=== PATIENT | female | born 1930 | race Caucasian/White ===

== ENCOUNTER 2017-01-26 17:53 | Observation (INO) | payer MEDICARE, OTHER ==
--- OUTSIDE RECORDS SUMMARY | 2017-01-26 17:55 | XMS | Clinical Summary ---
:1930 Author Organization [facility] Address [address] [place] [address] Phone Care Team Providers Name Role Phone , Primary Care Provider Unavailable Allergies Not on File Current Medications Not on file Active Problems Not on file Social History Tobacco Use Types Packs/Day Years Used Date Never Assessed Sex Assigned at Date Recorded Not on file Last Filed Vital Signs Not on file Plan of Treatment Not on file Results Not on filefrom Last 3 Months
[2017-01-26 19:40] LABS: #Eosinphils 0.1 thou/uL (0.0-0.7); #Lymphocytes 1.4 thou/uL (1.20-3.40); #Monocytes 0.4 thou/uL (0.11-0.59); #Neutrophils 4.8 thou/uL (1.40-6.50); %Basophils 0.5 % (0.0-1.0); %Eosinophils 1.7 % (0.0-10.0); %Monocytes 6.1 % (0.0-10.0); Mean Platelet Volume 7.7 fL (7.4-10.4); Red Blood Cell (RBC) Count 4.77 mill/uL (4.20-5.40); White Blood Cell (WBC) Count 6.7 thou/uL (4.8-10.8)
[2017-01-26 19:46] LABS: PTT 32.2 SEC (22.9-36.1); Prothrombin Time 14.7 SEC (12.0-14.7)
[2017-01-26 20:07] LABS: ALT (SGPT) 12 U/L (8-55); AST (SGOT) 17 U/L (5-34); Alkaline Phosphatase 60 U/L (40-150); Anion Gap 12 mmol/L (10-20); BUN (Urea Nitrogen) 26 mg/dL (9.8-20.1); Bilirubin, Total 0.8 mg/dL (0.2-1.2); CK (CPK) 49 U/L (29-168); Calc. Creatinine Clearance 0 mL/min (70-130); Calcium 9.6 mg/dL (7.8-10.44); Carbon Dioxide 28 mmol/L (23-31); Chloride 100 mmol/L (98-107); Estimated GFR-MDRD 56; Globulin 3.2 g/dL (2.4-3.5); Lipase 24 U/L (8-78); Protein, Total 7.1 g/dL (6.0-8.3)
[2017-01-26 20:11] LABS: Troponin I Less than 0.010 ng/mL (< 0.028)
--- NOTE | 2017-01-26 20:43 | CT ---
BRAIN CT WITHOUT IV CONTRAST: 01/26/17 HISTORY: 86-year-old female with altered mental status as well as dizziness and headache which began three da ys ago. COMPARISON: 11/24/13. FINDINGS: Atrophy and chronic white matter ischemic change. No mass or acute hemorrhage. Stable appearance. IMPRESSION: Stable atrophy and chronic white matter ischemic change. No mass or bleed or other acute process. POS: [facility]
--- NOTE | 2017-01-26 22:10 | RAD ---
UPRIGHT PORTABLE CHEST ONE VIEW 01/26/17 HISTORY: 86-year-old female with altered mental status and dizzy spells. COMPARISON: 05/01/16 FINDINGS: Severe S-shaped scoliosis. Heart size is within normal limits. Left ICD. Monitor leads overlie the c hest. IMPRESSION: No significant acute intrathoracic disease. Severe S-shaped scoliosis. Left ICD. POS: [facility]
[2017-01-26 22:17] VITALS: BMI 16.2
[2017-01-26] MEDS ORDERED: Ondansetron HCl/PF 4 MG/2 ML Vial IVP PRN (22:24)
[2017-01-26] MEDS ORDERED: Ondansetron ODT 4 MG TAB SL PRN (22:24)
[2017-01-26] MEDS ORDERED: Acetaminophen 325 MG TAB PO PRN ×2 (22:24→23:13)
[2017-01-26] MEDS ORDERED: Senokot 8.6 MG TAB PO PRN (23:13)
[2017-01-26] MEDS ORDERED: Sodium Chloride 0.9% 1,000 ML IV SCH (23:15)
[2017-01-26 23:32] LABS: Troponin I 0.022 ng/mL (< 0.028)
[2017-01-26 23:47] LABS: Bilirubin Negative (Negative); Blood, Urine Negative (Negative); Glucose, Urine (Dipstick) Negative (Negative); Ketone, Urine Negative (Negative); Nitrite Negative (Negative); Protein, Urine (Dipstick) Negative (Neg-Trace); Urobilinogen 0.2 mg/dL (0.2-1.0)
[2017-01-26 23:49] LABS: Bacteria/HPF None Seen HPF (None Seen); Hyaline Casts/LPF 0-3 HYALINE CAST LPF (0-3 Hyaline); RBC/HPF 0-3 HPF (0-3); Squamous Epithelial 0-3 HPF (0-3); WBC/HPF 0-3 HPF (0-3)
--- NOTE | 2017-01-27 02:00 | HP ---
REASON FOR ADMISSION: Dizziness, mild confusion. HISTORY OF PRESENTING ILLNESS: The patient gives history of feeling dizzy day before while she was trying to get up from her commode. This has continued from last 2 days. Yesterday morning, she was apparently a little confused per the son and daughter here at the bedside. Has no complaints of any specific weakness in any of the extremities. No complaints of chest pain, palpitations, PND, or orthopnea. The patient was taken off her digoxin and Zetia 2 weeks ago. No new medications have been added. She continues to take Lasix. No complaints of fever, cough, or expectoration. No complaints of flu-like illness. No complaints of urinary frequency or urgency. PAST MEDICAL AND SURGICAL HISTORY: History of CHF with systolic dysfunction and ejection fraction of 25%, AICD, paroxysmal atrial fibrillation, history of breast cancer, mastectomy, appendectomy, hysterectomy, tonsillectomy, thyroidectomy, hypothyroidism. CURRENT MEDICATIONS: Patient is on Coreg 25 mg twice daily, lisinopril 10 mg daily, Synthroid 75 mcg daily, sotalol 80 mg p.o. 2 times daily, Eliquis 2.5 mg p.o. twice daily, vitamin C 500 mg p.o. daily, calcium 1250 mg p.o. daily, vitamin D 1 capsule daily, Lasix 20 mg daily. ALLERGIES: Multiple agents including CODEINE, EPINEPHRINE, IODINE, LEVOFLOXACIN , LIDOCAINE, PENICILLIN, PROCAINE PENICILLIN, and SULFA. PERSONAL HISTORY: Does not abuse alcohol or drugs. No history of smoking. FAMILY HISTORY: Mother has had [place] at the age of 78. Sister has had history of coronary artery disease. Patient normally ambulates by herself. REVIEW OF SYSTEMS: The following complete review of systems was negative, unless otherwise mentioned in the HPI or below: Constitutional: Weight loss or gain, ability to conduct usual activities. Skin: Rash, itching. Eyes: Double vision, pain. ENT/Mouth: Nose bleeding, neck stiffness, pain, tenderness. Cardiovascular: Palpitations, dyspnea on exertion, orthopnea. Respiratory: Shortness of breath, wheezing, cough, hemoptysis, fever or night sweats. Gastrointestinal: Poor appetite, abdominal pain, heartburn, nausea, vomiting, constipation, or diarrhea. Genitourinary: Urgency, frequency, dysuria, nocturia. Musculoskeletal: Pain, swelling. Neurologic/Psychiatric: Anxiety, depression. Allergy/Immunologic: Skin rash, bleeding tendency. PHYSICAL EXAMINATION: GENERAL: The patient is an 86-year-old female, who is currently not in any acute distress. VITAL SIGNS: Blood pressure 164/64 on arrival, pulse 66 per minute, respiratory rate 18 per minute, temperature 98.6 degrees Fahrenheit, saturating 98% on room air. NECK: Supple, no elevated JVD. HEENT: Extraocular muscles intact. Pupils reacting to light. Oral cavity mucous membranes are moist. No exudates or congestion. CARDIOVASCULAR SYSTEM: S1, S2 heard. Regular rhythm. RESPIRATORY SYSTEM: Air entry 1+ bilaterally. No rales or rhonchi. ABDOMEN: Soft, bowel sounds heard. No tenderness, rigidity, or guarding. EXTREMITIES: No peripheral edema or calf tenderness. VASCULAR SYSTEM: Peripheral pulses 1+ bilateral. No ischemic ulcerations or gangrene. CENTRAL NERVOUS SYSTEM: No gross focal deficits seen. Patient is alert, awake , oriented x3. PSYCHIATRIC SYSTEM: The patient's mood is euthymic. No hallucinations or delusions. LABORATORY AND X-RAY FINDINGS: EKG done shows paced rhythm at 62 beats per minute. White count of 6.7, H and H 15 and 47, platelet count 212 with 70% neutrophils, MCV is 98. PT, INR, PTT within normal limits. Electrolytes are stable. BUN 26, creatinine 0.9. Liver enzymes within normal limits. First set of cardiac enzymes are negative. Lipase is 24. UA shows small leukocyte esterase, but there is only 0-3 wbc's and no bacteria seen. CT brain done shows no acute intracranial abnormalities. There is stable atrophy of the brain. Chest x-ray done shows no acute intrathoracic disease. CLINICAL IMPRESSION AND PLAN: The patient will be under observation on the stroke unit for dizziness most likely orthostasis with her being on Lasix and multiple antihypertensive medications. We will gently hydrate her with 70 mL per hour normal saline for a total of 1 liter. She has known history of congestive heart failure and would not want her to be overloaded. Her sotalol dose need to be confirmed from her pharmacy. Orthostatic blood pressures will be obtained. Most likely, the patient can be discharged after PT evaluates the patient in the morning. Please note, I have seen and examined the patient on . ENRIKE
[2017-01-27 02:23] LABS: #Eosinphils 0.1 thou/uL (0.0-0.7); #Lymphocytes 2.2 thou/uL (1.20-3.40); #Monocytes 0.5 thou/uL (0.11-0.59); #Neutrophils 3.8 thou/uL (1.40-6.50); %Basophils 0.6 % (0.0-1.0); %Eosinophils 1.5 % (0.0-10.0); %Lymphocytes 32.9 % (21.0-51.0); %Monocytes 8.1 % (0.0-10.0); Mean Platelet Volume 7.6 fL (7.4-10.4); Red Blood Cell (RBC) Count 4.26 mill/uL (4.20-5.40); White Blood Cell (WBC) Count 6.7 thou/uL (4.8-10.8)
[2017-01-27 02:50] LABS: Troponin I 0.021 ng/mL (< 0.028)
[2017-01-27 03:05] LABS: Anion Gap 10 mmol/L (10-20); BUN (Urea Nitrogen) 23 mg/dL (9.8-20.1); Calc. Creatinine Clearance 34 mL/min (70-130); Calcium 9.4 mg/dL (7.8-10.44); Carbon Dioxide 28 mmol/L (23-31); Chloride 103 mmol/L (98-107); Cholesterol 157 mg/dl (< 200 Desired); Estimated GFR-MDRD 66; LDL Cholesterol, Calculated 95 mg/dL
[2017-01-27] MEDS: Levothyroxine Sodium 75 MCG TAB PO SCH (05:36)
[2017-01-27] MEDS ORDERED: Aspirin 325 MG TAB PO SCH (08:00)
[2017-01-27] MEDS: Aspirin 81 mg Enteric Coated Tablet PO SCH (08:27)
[2017-01-27] MEDS: Apixaban 5 MG TAB PO SCH ×2 (08:28→20:08)
[2017-01-27] MEDS: Lisinopril 10 MG TAB PO SCH (08:28)
[2017-01-27] MEDS: Sotalol HCl 80 MG TAB PO SCH (08:28)
[2017-01-27] MEDS: Carvedilol 25 MG TAB PO SCH ×2 (08:28→17:10)
[2017-01-27] MEDS: Magnesium Chloride 64 MG TAB PO SCH (08:30)
--- NOTE | 2017-01-27 13:57 | CON ---
DATE OF CONSULTATION: 01/27/2017 REASON FOR CONSULTATION: 1. Dizziness, lightheadedness, nonsustained ventricular tachycardia. 2. Status post biventricular pacemaker defibrillator. 3. Confusion. HISTORY OF PRESENT ILLNESS: Ms. Donohue is a delightful 86-year-old woman. She has a long history o f idiopathic cardiomyopathy with previous biventricular pacemaker defibrillator. She came to the [facility] last night. She cannot give me a lot of details as her memory is becoming progressively more impaired, but she thinks she was having dizzy episodes and felt like she may even faint, but did n ot faint at home. She was brought to the hospital. There was some mild confusion. She seems to be more oriented, less confused today and she apologizes but said she really cannot remember a lot of the details other than being lightheaded. No chest pain or pressure. PAST MEDICAL HISTORY: 1. She has a long history of idiopathic dilated cardiomyopathy with previous pacemaker defibrillato r biventricular device for left bundle branch block. 2. History of atrial fibrillation. She was on sotalol for that. MEDICATIONS PRIOR TO ADMISSION: 1. Carvedilol 25 mg twice daily. 2. Furosemide. 3. Eliquis. 4. Lisinopril. 5. Synthroid. 6. Calcium. 7. Sotalol 80 mg twice a day. ALLERGIES: CEFAZOLIN, CODEINE, IODINE, LEVOFLOXACIN and LIDOCAINE. SOCIAL HISTORY: She tells me she lives alone. REVIEW OF SYSTEMS: Somewhat incomplete due to her memory loss, but the following is obtained. GENERAL: She is thin and has gradually been losing some weight. VISION: No changes. HEARING: No changes. PULMONARY: No cough or wheezing. CARDIAC: No chest pain or shortness of breath. PULMONARY: No difficulty breathing. GASTROINTESTINAL: No nausea, vomiting, diarrhea. SKIN: No rashes. NEUROLOGIC: No unilateral weakness or numbness. PSYCHIATRIC: No unusual depression or anxiety. HEMATOLOGIC: No unusual bruising. GENITOURINARY: No burning with urination. PHYSICAL EXAMINATION: GENERAL: This is a very pleasant, frail appearing elderly woman. She is 5 foot 5 inches tall, 97 p ounds. VITAL SIGNS: Blood pressure earlier 176/74, subsequently 142/68, pulse 70. EYES: Sclerae nonicteric. MOUTH: Mucous membranes moist. NECK: Supple, no lymphadenopathy. LUNGS: Clear, no wheezing, rales or rhonchi. CARDIOVASCULAR: Normal S1, normal S2. There is a grade 3/6 loud holosystolic murmur at the apex. No diastolic murmur, no S3. ABDOMEN: Soft, nontender. EXTREMITIES: No clubbing, cyanosis or edema. LABORATORY AND X-RAY FINDINGS: EKG reveals atrial pacing and biventricular paced rhythm. ASSESSMENT: 1. Dizziness and lightheadedness, probably orthostatic hypotension. 2. Cardiomyopathy. 3. Sounds like mitral regurgitation. 4. Biventricular pacemaker defibrillator implantation. 5. Nonsustained ventricular tachycardia. PLAN: 1. Check orthostatic hypotension. 2. Interrogate device. 3. Go ahead and Hep-Lock the IV. 4. Repeat echocardiogram.
--- NOTE | 2017-01-27 18:02 | PDOC.PN ---
- Subjective Encounter Start Date: 01/27/17 Encounter Start Time: 18:00 Subjective: f/u for dizziness and NSVT. Currently asymptomatic and feels ok. -: Pacemaker interrogated today and 2D echo taken but pending. - Objective Resuscitation Status: Resuscitation Status FULL:Full Resuscitation MAR Reviewed: Yes Vital Signs & Weight: Vital Signs (12 hours) Temp Pulse Pulse Pulse Pulse Resp BP 01/27/17 17:00 98.1 F 65 14 01/27/17 14:56 69 01/27/17 14:55 67 01/27/17 14:53 68 01/27/17 14:50 68 67 69 116/54 L 01/27/17 08:00 98.3 F 71 16 01/27/17 07:32 98.3 F 71 16 BP BP BP BP BP Pulse Ox 01/27/17 17:00 127/61 95 01/27/17 14:56 137/65 01/27/17 14:55 137/64 01/27/17 14:53 116/54 L 01/27/17 14:50 137/64 137/65 01/27/17 08:00 01/27/17 07:32 142/68 H 95 Weight Admit Weight 97 lb 4.816 oz Weight 97 lb 4.816 oz I&O: 01/26/17 01/27/17 01/28/17 06:59 06:59 06:59 Intake Total 433 Balance 433 Result Diagrams: 01/27/17 02:12 01/27/17 02:12 Radiology Reviewed by me: Yes (2D echo pending) EKG Reviewed by me: Yes (Tele - Paced, NSVT/WCT) Phys Exam - Physical Examination Constitutional: NAD HEENT: PERRLA, oral pharynx no lesions Neck: no JVD, supple Respiratory: no wheezing, clear to auscultation bilateral Cardiovascular: RRR Gastrointestinal: soft, non-tender, no distention, positive bowel sounds Musculoskeletal: no edema, pulses present Neurological: normal sensation, moves all 4 limbs Psychiatric: A&O x 3 Skin: normal turgor, cap refill <2 seconds Dx/Plan (1) Arrhythmia Code(s): I49.9 - CARDIAC ARRHYTHMIA, UNSPECIFIED Status: Acute Qualifiers: Arrhythmia type: ventricular tachycardia Qualified Code(s): I47.2 - Ventricular tachycardia Comment: Pacemaker interrogation, 2D echo pending, Sotalol 80mg daily (2) Dizziness Code(s): R42 - DIZZINESS AND GIDDINESS Status: Acute Comment: ? relationship to NSVT, resolved currently (3) HTN (hypertension) Code(s): I10 - ESSENTIAL (PRIMARY) HYPERTENSION Status: Chronic Qualifiers: Hypertension type: essential hypertension Qualified Code(s): I10 - Essential (primary) hypertension Comment: labile, resume Sotalol, monitor BP response, may need additional titration for more optimal control (4) CKD (chronic kidney disease) stage 2, GFR 60-89 ml/min Code(s): N18.2 - CHRONIC KIDNEY DISEASE, STAGE 2 (MILD) Status: Chronic Comment: Stable currently - Plan plan discussed w/ family, out of bed/ambulate, DVT proph w/SCDs Stable overall -: Continue Sotalol and Coreg -: ? Resumption of Digoxin -: Await 2D echo results -: Likely home in am * .
[2017-01-28] MEDS: Levothyroxine Sodium 75 MCG TAB PO SCH (05:26)
[2017-01-28 07:52] VITALS: TEMP 97.4
--- NOTE | 2017-01-28 08:42 | PRG ---
DATE OF SERVICE: 01/28/2017 SUBJECTIVE: Ms. Donohue is doing well today. No chest pain or pressure. She is not lightheaded tod ay. PHYSICAL EXAMINATION: VITAL SIGNS: Blood pressure was high 170/74, pulse 70. LUNGS: Clear. CARDIAC: Normal S1, S2. Orthostatic hypotension she did not have, standing actually blood pressure increased. Echocardiogram showed normal left ventricular function. She has left ventricular hypertrophy. ASSESSMENT: 1. Dizziness and lightheadedness of unknown etiology. 2. Occasional nonsustained ventricular tachycardia, rate of 110 beats per minute. It does not appe ar to likely be the source of her dizziness. 3. Atrial fibrillation, suppressed on sotalol. 4. Iodine allergy. Therefore, probably cannot use amiodarone. PLAN: 1. Okay with me to be released home. 2. The DECET rate was lowered on the device to see if she has recurrent ventricular arrhythmias. 3. The family said she had an attempt at ablation previously, had multiple sources of tachycardia. I do not have that information available to me, that was quite a long time ago. At the present gerald e, we will continue the regimen as outlined above.
[2017-01-28] MEDS: Magnesium Chloride 64 MG TAB PO SCH (08:43)
[2017-01-28] MEDS: Sotalol HCl 80 MG TAB PO SCH (08:44)
[2017-01-28] MEDS: Aspirin 81 mg Enteric Coated Tablet PO SCH (08:44)
[2017-01-28] MEDS: Apixaban 5 MG TAB PO SCH (08:44)
[2017-01-28] MEDS: Carvedilol 25 MG TAB PO SCH (08:44)
[2017-01-28] MEDS: Lisinopril 10 MG TAB PO SCH (08:44)
[2017-01-28 13:04] VITALS: BP 154/66
--- NOTE | 2017-01-28 13:18 | PDISCHARGE ---
Discharge - Disposition Disposition: HOME - Ambulatory Orders Prescriptions: Lisinopril [Zestril] 20 mg PO DAILY #30 tab - Patient Instructions Pre-Printed Education: Ventricular Arrhythmia, ED Arrhythmia, Unspecified, ED Dizziness, Unk Cause, ED Syncope, Unk Cause Care Plan Goals: FOCUS: Transition from Acute Care after Discharge GOAL: Successful transition to care in the community YOUR TASKS: (1) review all information outlined in your discharge packet (2) follow any instructions outlined in your discharge packet (3) contact your primary care provider if you have questions or need additional assistanceStable Systolic HF on admission: EF 25-30% with ICD. Please provide education on discharge for continued management of HF at home. 0 TAKE CONTROL OF HEART FAILURE 0 Together we can! o Weigh yourself daily every morning after going to the bathroom. Call your health care provider if you gain 2 pounds in a day or 5 pounds in a week. o Eat no more than 2 grams (2000mg) sodium (salt) a day. Read food labels and throw away the salt shaker! o Your personal fluid limit: Only if instructed by a provider o Take your Medications as prescribed. Do not skip doses. If you can't afford your medications, please let your doctor know. o Watch for worsening heart failure symptoms such as increased swelling or increased shortness of breath with activity or at rest. o Follow-up with your primary care provider within 1 week of discharge from the hospital. o Maintain activity as tolerated with frequent rest periods. o If you smoke - smoking puts stress on your heart. We can help you quit smoking, just ask. o Expect a follow up call in one to three days if you are being discharged to your home. Please go to heart.org/myhfguide to learn even more about managing your heart failure using the free interactive workbook. - Referrals and PCP Follow-Up Referrals and PCP Follow-Up: Clyde Forrester MD [Active] - 10 Days PROVIDER,NO PCP [Primary Care Provider] - Katie Aguilar MD [Active] - 14 Days - Activity Instructions Activity:: Activity as Tolerated Additional Activity Instructions:: rolloing walker as per PT - Nourishment Instructions Nourishment:: Heart Healthy Diet - Equipment/Supply Instructions Equipment/Supplies:: Walker
--- NOTE | 2017-01-28 14:48 | PDOC.EVN ---
Event Note - Event Note Event Note: discharge summary dictated
--- NOTE | 2017-01-28 23:13 | DIS ---
DATE OF ADMISSION: 01/27/2017 DATE OF DISCHARGE: 01/28/2017 DISCHARGE DIAGNOSES: 1. Ventricular tachycardia. 2. Resolved dizziness. 3. Hypertension, controlled. 4. Chronic kidney disease, stable. 5. Status post permanent pacemaker. 6. On chronic anticoagulation. 7. Idiopathic dilated cardiomyopathy. 8. History of breast cancer. DISCHARGE MEDICATIONS: Lisinopril 20 mg p.o. daily, sotalol 80 mg p.o. daily, aspirin 81 mg p.o. daily, Tylenol p.r.n., levothyroxine 75 mcg p.o. daily, Coreg 25 mg p.o. b.i.d., Slow-Mag 1 tab daily, Senna p.r.n. CONSULTATIONS: Cardiology. HOSPITAL COURSE: Patient was admitted to the telemetry unit from the emergency room with dizziness. Patient has a history of idiopathic dilated cardiomyopathy , atrial fibrillation, status post PPM, hypertension and breast cancer. Patient did well. Cardiac enzymes were negative. She was seen by Cardiology, and pacemaker was interrogated. This only showed nonsustained ventricular tachycardia occasionally with a maximum rate of 110, unlikely to be the source of dizziness. A 2D echocardiogram was done as per Cardiology recommendation. This showed ejection fraction of 50%-55%, concentric LVH, mildly dilated left atrium, moderate MR. Patient was seen by physical therapy and recommended to have a rolling walker, which was prescribed. Patient's blood pressure was slightly elevated, so lisinopril dose was increased to 20 mg p.o. daily. The patient did well with the above recommendations and her dizziness resolved. She was discharged to home in stable condition on 01/28/2017. She was advised to follow up with the PCP in 7 days and with Cardiology in 10 days. Anticoagulation was continued. Instructions given to the patient and family. ENRIKE
[2017-01-29] MEDS ORDERED: Lisinopril 20 MG TAB PO SCH (09:00)
== END 2017-01-28 11:45 | disposition home or self-care (01) ==
LOC: ERS 17:53 → 2SE 20:45
PROVIDERS: ADMIT Internal Medicine; ATTEND Internal Medicine
DX: I47.2 Ventricular tachycardia (principal); R42 Dizziness and giddiness; I13.0 Hypertensive heart and chronic kidney disease with heart failure and stage 1 through stage 4 chronic kidney disease, or unspecified chronic kidney disease; N18.2 Chronic kidney disease, stage 2 (mild); E89.0 Postprocedural hypothyroidism; I44.7 Left bundle-branch block, unspecified; I50.20 Unspecified systolic (congestive) heart failure; I48.0 Paroxysmal atrial fibrillation; Z79.82 Long term (current) use of aspirin; Z79.01 Long term (current) use of anticoagulants; Z79.899 Other long term (current) drug therapy; Z88.5 Allergy status to narcotic agent; Z88.0 Allergy status to penicillin; Z88.2 Allergy status to sulfonamides; Z88.7 Allergy status to serum and vaccine; Z88.8 Allergy status to other drugs, medicaments and biological substances; Z88.1 Allergy status to other antibiotic agents; Z91.041 Radiographic dye allergy status; Z95.0 Presence of cardiac pacemaker; Z90.49 Acquired absence of other specified parts of digestive tract; Z90.710 Acquired absence of both cervix and uterus; Z90.10 Acquired absence of unspecified breast and nipple; Z90.89 Acquired absence of other organs; Z85.3 Personal history of malignant neoplasm of breast
CPT/HCPCS: 70450; 71010; 80048; 80053; 80061; 81001; 82550; 82553; 83690; 84484 ×3; 85025 ×2; 85610; 85730; 93005; 93306; 96360; 96361; 97110; 97116; 97139; 99285; G0378; G8978; G8979; 36415

== ENCOUNTER 2017-05-08 11:34 | Emergency (ER) | payer MEDICARE, OTHER ==
[2017-05-08] MEDS ORDERED: traMADol HCl 50 MG TAB ONE (13:33)
--- NOTE | 2017-05-08 13:50 | RAD ---
RIGHT HIP 2 VIEWS: Date: 05/08/17 HISTORY: 86-year-old female with right hip pain for several days. FINDINGS: Mild bony demineralization. No evidence for an acute fracture or dislocation. Degenerative changes ri ght hip joint. IMPRESSION: Degenerative changes right hip joint. Bony demineralization. No acute fracture. POS: [facility]
--- NOTE | 2017-05-08 13:52 | RAD ---
AP PELVIS 1 VIEW: Date: 05/08/17 HISTORY: Right hip pain for several days. FINDINGS: Bony demineralization and bilateral hip joint arthrosis. There is lower lumbar spine spondylosis with what appears to be some levoscoliosis. There is diffuse bony demineralization. No evidence for an ac [place] pelvic fracture. IMPRESSION: No acute pelvic fracture. POS: [facility]
== END 2017-05-08 14:22 | disposition home or self-care (01) ==
LOC: ERS 11:34
DX: M25.551 Pain in right hip (principal); I48.91 Unspecified atrial fibrillation; Z79.899 Other long term (current) drug therapy
CPT/HCPCS: 72170

== ENCOUNTER 2017-05-24 14:08 | Emergency (ER) | payer MEDICARE, OTHER ==
[~2017-05-24 14:08] MED LIST: ISOVUE-370 76%-LOCM 1 ML ONE
[2017-05-24 14:44] LABS: #Eosinphils 0.1 thou/uL (0.0-0.7); #Lymphocytes 1.5 thou/uL (1.20-3.40); #Monocytes 0.5 thou/uL (0.11-0.59); %Basophils 0.6 % (0.0-1.0); %Monocytes 6.6 % (0.0-10.0); %Neutrophils 73.9 % (42.0-75.0); Hemoglobin 14.1 g/dL (12.0-16.0); Mean Corpuscular HGB CONC 33.4 g/dL (32.0-36.0); Mean Corpuscular Hemoglobin 32.7 pg (27.0-31.0); Mean Corpuscular Volume 98.1 fl (81.0-99.0); Platelet Count 228 thou/uL (130-400); RBC Distribution Width 12.2 % (11.5-14.5); Red Blood Cell (RBC) Count 4.31 mill/uL (4.20-5.40); White Blood Cell (WBC) Count 8.1 thou/uL (4.8-10.8)
--- NOTE | 2017-05-24 14:50 | RAD ---
SINGLE VIEW OF CHEST: Date: 05/24/17 COMPARISON: 01/26/17. HISTORY: Chest pain when attempting to swallow a pill earlier and the pill became stuck. FINDINGS: Single view of the chest shows an enlarged but stable cardiomediastinal silhouette. Pacemaker is unch anged in position. There is no evidence of consolidation, mass, or pleural effusion. There is severe scoliotic curvature of the spine. IMPRESSION: No evidence of acute cardiopulmonary disease. POS: [facility]
[2017-05-24 15:08] LABS: ALT (SGPT) 15 U/L (8-55); AST (SGOT) 22 U/L (5-34); Albumin 3.9 g/dL (3.4-4.8); Alkaline Phosphatase 56 U/L (40-150); Anion Gap 11 mmol/L (10-20); BUN (Urea Nitrogen) 17 mg/dL (9.8-20.1); Bilirubin, Total 0.9 mg/dL (0.2-1.2); CK (CPK) 71 U/L (29-168); Calc. Creatinine Clearance 0 mL/min (70-130); Calcium 9.7 mg/dL (7.8-10.44); Carbon Dioxide 27 mmol/L (23-31); Chloride 100 mmol/L (98-107); Estimated GFR-MDRD 61; Globulin 3.1 g/dL (2.4-3.5); Glucose 117 mg/dL (83-110); Potassium 4.1 mmol/L (3.5-5.1); Sodium 134 mmol/L (136-145)
[2017-05-24 15:10] LABS: CKMB 1.6 ng/mL (0-6.6); Troponin I 0.016 ng/mL (< 0.028)
[2017-05-24] MEDS ORDERED: Famotidine/PF 20 mg/2ml Vial ONE (21:37)
[2017-05-24] MEDS ORDERED: methylPREDNISolone Sod Succ/PF 125 MG/2 ML VIAL ONE (21:37)
[2017-05-24] MEDS ORDERED: diphenhydrAMINE 50 MG/ML VIAL ONE (21:37)
--- NOTE | 2017-05-24 22:56 | CT ---
CT ANGIO OF CHEST PERFORMED WITH INTRAVENOUS CONTRAST ENHANCEMENT WITH 3D RECONSTRUCTION: History: Chest pain. Comparison: 03-05-14 FINDINGS: Subsegmental atelectatic changes in the lung bases. Some parenchymal scarring in the right upper lobe which appears fairly stable as compared to the prior exam. No acute infiltrative process is present. No significant mediastinal or hilar adenopathy. The thoracic aorta is tortuous. There is some atherosclerotic changes at the origin of the left coron garry artery. Post op sternotomy changes are present. There is good pulmonary artery opacification, there is no CT evidence for pulmonary embolus. There is a marked scoliotic deformity to the spine. Partially visualized hypodensity within the left kidney is most likely a cyst. It appears unchanged s severiano the previous study. IMPRESSION: No CT evidence for pulmonary embolus. POS: [facility]
[2017-05-24 23:33] LABS: Troponin I 0.028 ng/mL (< 0.028)
[2017-05-24] MEDS ORDERED: Acetaminophen 325 MG TAB ONE (23:48)
[2017-05-25] MEDS ORDERED: Furosemide 40 MG/4 ML VIAL ONE (00:52)
--- NOTE | 2017-05-29 14:24 | EKG ---
Test Reason : Blood Pressure : / mmHG Vent. Rate : 067 BPM Atrial Rate : 067 BPM P-R Int : 166 ms QRS Dur : 152 ms QT Int : 488 ms P-R-T Axes : 027 013 023 degrees QTc Int : 515 ms AV dual-paced rhythm Abnormal ECG No ST elevation/LA Confirmed by YAMILETH WEEKS, MJ ([id number]), newspaper managing editor SHARRI CAPELLAN ([id number]) on 05/29/2017 2:24:35 PM Referred By: Confirmed By:MJ CARSON MD
== END 2017-05-25 01:02 | disposition home or self-care (01) ==
LOC: ERS 14:08
DX: G89.18 Other acute postprocedural pain (principal); R07.89 Other chest pain; I48.91 Unspecified atrial fibrillation; M41.9 Scoliosis, unspecified; Z79.891 Long term (current) use of opiate analgesic; Z79.899 Other long term (current) drug therapy
CPT/HCPCS: 36415; 71045; 71275; 80053; 82553; 83690; 83880; 84484; 85025; 85379; 93005; 94760; 96374; 96375; J1200; J1940; J2930; S0028

== ENCOUNTER 2017-06-11 13:07 | Day surgery (SDC) | payer MEDICARE, OTHER ==
[2017-06-10 11:09] VITALS: BMI 15.7
[2017-06-11] MEDS ORDERED: Lidocaine 1% PF 5 ML VIAL ONE (16:26)
[2017-06-11] MEDS ORDERED: Propofol 200 MG/20 ML VIAL ONE (16:26)
--- NOTE | 2017-06-11 17:07 | OP ---
PREOPERATIVE DIAGNOSIS: Dysphagia. PROCEDURE IN DETAIL: After informed consent was obtained, the patient was placed in the left lateral decubitus position. Anesthesia was administered per the Anesthesia Department. Forward-viewing end oscope was inserted into the esophagus under direct visualization with ease and passed to the second portion of the duodenum with ease. Second portion of the duodenum and duodenal bulb were normal. Th e pylorus, antrum, body, fundus, and cardia were normal. Retroflexion in the stomach was normal exce pt for a small hiatal hernia. A 54-[place] Romero dilator was passed with little or no resistance. Reinsertion of the endoscope showed some post-dilatation changes at the proximal esophagus and also s mall mucosal rent was noted along the greater curvature of the stomach and this was treated with a He moclip x1. ASSESSMENT: 1. 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 2. Mucosal tear on the greater curvature of the stomach secondary to Romero passage - status post c lip placement. RECOMMENDATIONS: 1. Start Eliquis tomorrow. 2. Follow up in my office in 2-3 weeks.
== END 2017-06-11 17:55 | disposition home or self-care (01) ==
LOC: SDC 13:07
PROVIDERS: ATTEND Internal Medicine Gastroenterology
PROC: 0DJ08ZZ Inspection of Upper Intestinal Tract, Via Natural or Artificial Opening Endoscopic (ICD-10-PCS; principal; 2017-06-11)
PROC: 0D757DZ Dilation of Esophagus with Intraluminal Device, Via Natural or Artificial Opening (ICD-10-PCS; 2017-06-11)
DX: K22.2 Esophageal obstruction (principal); K44.9 Diaphragmatic hernia without obstruction or gangrene; I49.9 Cardiac arrhythmia, unspecified; E20.9 Hypoparathyroidism, unspecified; H26.9 Unspecified cataract; M41.9 Scoliosis, unspecified; E89.0 Postprocedural hypothyroidism; Z79.01 Long term (current) use of anticoagulants; Z79.899 Other long term (current) drug therapy; Z88.2 Allergy status to sulfonamides; Z88.7 Allergy status to serum and vaccine; Z88.6 Allergy status to analgesic agent; Z88.1 Allergy status to other antibiotic agents; Z91.041 Radiographic dye allergy status; Z88.5 Allergy status to narcotic agent; Z88.0 Allergy status to penicillin; Z91.013 Allergy to seafood; Z90.89 Acquired absence of other organs; Z90.710 Acquired absence of both cervix and uterus; Z90.49 Acquired absence of other specified parts of digestive tract; Z90.10 Acquired absence of unspecified breast and nipple
CPT/HCPCS: J2001; J2704